=== PATIENT | female | born 1955 | race African-American/Black ===

== ENCOUNTER 2017-04-27 12:30 | Emergency (ER) | payer MEDICAID ==
[~2017-04-27] VITALS: Ht 172.7 cm; Wt 82.0 kg
[~2017-04-27 12:30] MED LIST: FURO-152 PO; GABA800T PO; LEVO50TA70 PO; LISI2.5T89; METF500T PO; POTA25TA PO; PRIL10 PO
[2017-04-27] MEDS ORDERED: SODIUM CHLORIDE 0.9% 10ML VIAL ONE (13:06)
[2017-04-27] MEDS ORDERED: IOHEXOL-300 100 ML BOTTLE ONE (13:06)
[2017-04-27] MEDS ORDERED: MORPHINE SULFATE 4 MG/ML CPJ (NOT FOR IM USE) IV STA (14:01)
[2017-04-27] MEDS ORDERED: ONDANSETRON HCL 4MG/2ML VIAL IV STA (14:01)
[2017-04-27 14:28] LABS: BASOPHILS % 0.8 % (0.0-2.0); EOSINOPHILS % 0.8 % (0.0-5.0); HEMATOCRIT. 40.2 % (36.0-48.0); LYMPHOCYTES % 38.8 % (20.0-50.0); MEAN CORPUSCULAR VOLUME 89.6 fL (81.0-99.0); MEAN PLATELET VOLUME 8.4 fl (7.4-10.4); MONOCYTES % 6.6 % (2.0-8.0); PLATELET 171 x1000/uL (130-400); RED BLOOD CELL COUNT 4.49 mill/uL (4.2-5.4); RED CELL DISTRIBUTION WIDTH 13.2 % (11.6-14.6)
[2017-04-27 14:34] LABS: PROTHROMBIN TIME 10.6 sec
[2017-04-27 14:40] LABS: CARBON DIOXIDE 28 mEq/L (21-32); CHLORIDE 106 mEq/L (98-107)
[2017-04-27 14:49] LABS: CLARITY URINE CLEAR (CLEAR); COLOR URINE YELLOW (YELLOW); GLUCOSE URINE NEGATIVE (NEGATIVE); KETONES URINE NEGATIVE (NEGATIVE); LEUKOCYTE ESTERASE URINE NEGATIVE (NEGATIVE); NITRITE URINE NEGATIVE (NEGATIVE); OCCULT BLOOD URINE NEGATIVE (NEGATIVE); PROTEIN URINE NEGATIVE (NEGATIVE); SPECIFIC GRAVITY URINE 1.022 (1.005-1.030)
[2017-04-27 16:45] VITALS: BP 132/82
== END 2017-04-27 17:29 | disposition home or self-care (01) ==
LOC: ER 14:15
DX: R10.33 Periumbilical pain (principal); E11.9 Type 2 diabetes mellitus without complications; I11.0 Hypertensive heart disease with heart failure; F17.210 Nicotine dependence, cigarettes, uncomplicated; J44.9 Chronic obstructive pulmonary disease, unspecified; N28.1 Cyst of kidney, acquired; Z90.49 Acquired absence of other specified parts of digestive tract; Z90.710 Acquired absence of both cervix and uterus; Z86.19 Personal history of other infectious and parasitic diseases
CPT/HCPCS: 36415; 74177; 80053; 81003; 83690; 85025; 85610; 96374; 96375; 99285; A4216; J2270; J2405; Q9967; Z7610

== ENCOUNTER 2017-07-10 11:30 | Emergency (ER) | payer MEDICAID ==
[~2017-07-10] VITALS: Ht 172.7 cm; Wt 83.0 kg
[2017-07-10] MEDS ORDERED: KETOROLAC 30MG/ML VIAL IV STA (12:45)
[2017-07-10] MEDS ORDERED: ASPIRIN 81MG TABLET PO STA (12:45)
[2017-07-10 13:23] LABS: BASOPHILS % 0.5 % (0.0-2.0); EOSINOPHILS % 1.6 % (0.0-5.0); HEMOGLOBIN. 11.6 g/dL (12.0-16.0); LYMPHOCYTES % 41.1 % (20.0-50.0); MEAN CORPUSCULAR HEMOGLOBIN 29.1 pg (28.0-32.0); MEAN CORPUSCULAR VOLUME 88.1 fL (81.0-99.0); MEAN PLATELET VOLUME 7.8 fl (7.4-10.4); MONOCYTES % 7.3 % (2.0-8.0); NEUTROPHILS % 49.5 % (40.0-76.0); PLATELET 157 x1000/uL (130-400); RED BLOOD CELL COUNT 3.97 mill/uL (4.2-5.4); RED CELL DISTRIBUTION WIDTH 13.3 % (11.6-14.6)
[2017-07-10 13:28] LABS: CHLORIDE 106 mEq/L (98-107); PARTIAL THROMBOPLASTIN TIME 26.1 sec (23.4-31.0); PROTHROMBIN TIME 10.6 sec (9.4-11.6)
[2017-07-10 13:36] LABS: CARBON DIOXIDE 28 mEq/L (21-32); ETHANOL BLOOD < 10 mg/dL; TROPONIN I < 0.02 ng/mL (0.00-0.04)
[2017-07-10 14:03] VITALS: BP 133/85
[2017-07-10 14:37] LABS: *AMPHETAMINES SCREEN URINE NEGATIVE (NEGATIVE); *BARBITURATES SCREEN URINE NEGATIVE (NEGATIVE); *BENZODIAZEPINES SCREEN URINE NEGATIVE (NEGATIVE); *COCAINE SCREEN URINE PRESUMTIVE POSITIVE (NEGATIVE); METHADONE URINE SCREEN NEGATIVE (NEGATIVE); OPIATES URINE SCREEN NEGATIVE (NEGATIVE); PHENCYCLIDINE URINE SCREEN NEGATIVE (NEGATIVE)
[2017-07-10 14:47] LABS: CANNABINOID URINE SCREEN NEGATIVE (NEGATIVE)
== END 2017-07-10 15:50 | disposition home or self-care (01) ==
LOC: ER 13:59
DX: M94.0 Chondrocostal junction syndrome [Tietze] (principal); F14.10 Cocaine abuse, uncomplicated; E11.9 Type 2 diabetes mellitus without complications; J44.9 Chronic obstructive pulmonary disease, unspecified; I11.0 Hypertensive heart disease with heart failure; I50.9 Heart failure, unspecified; R07.89 Other chest pain
CPT/HCPCS: 36415; 71010; 80053; 80305; 83690; 84484; 85025; 85610; 85730; 93005; 96374; 99285; G0482; J1885

== ENCOUNTER 2022-10-21 14:12 | Emergency (ER) | payer MEDICAID ==
[~2022-10-21] VITALS: Ht 172.7 cm; Wt 82.0 kg
[~2022-10-21 14:12] MED LIST changes: +LEVO50TA PO; -LEVO50TA70 PO; -POTA25TA PO; +POTA25TA13 PO
[2022-10-21 17:38] LABS: BASOPHILS % 0.3 % (0.0-2.0); EOSINOPHILS % 2.3 % (0.0-5.0); HEMATOCRIT. 33.5 % (36.0-48.0); HEMOGLOBIN. 10.8 g/dL (12.0-16.0); MEAN CORPUSCULAR HEMOGLOBIN 28.7 pg (28.0-32.0); MEAN CORPUSCULAR VOLUME 88.7 fL (81.0-99.0); MEAN PLATELET VOLUME 7.8 fl (7.4-10.4); MONOCYTES % 8.8 % (2.0-8.0); NEUTROPHILS % 48.6 % (40.0-76.0); PLATELET 214 x1000/uL (130-400); RED BLOOD CELL COUNT 3.78 mill/uL (4.2-5.4); RED CELL DISTRIBUTION WIDTH 15.6 % (11.6-14.6)
[2022-10-21] MEDS ORDERED: KETOROLAC 60MG/2ML VIAL IM ONE (17:45)
[2022-10-21 17:57] LABS: CHLORIDE 110 mEq/L (98-107)
[2022-10-21] MEDS ORDERED: HYDROCODONE/ACETAMINOPHEN 5/325MG TABLET PO ONE (21:00)
[2022-10-21 21:19] LABS: CLARITY URINE CLEAR (CLEAR); COLOR URINE YELLOW (YELLOW); KETONES URINE TRACE (NEGATIVE); LEUKOCYTE ESTERASE URINE TRACE (NEGATIVE); NITRITE URINE NEGATIVE (NEGATIVE); OCCULT BLOOD URINE NEGATIVE (NEGATIVE); PROTEIN URINE TRACE (NEGATIVE); SPECIFIC GRAVITY URINE 1.034 (1.005-1.030)
[2022-10-21] MEDS ORDERED: CIPHCO LEFT EAR (21:46)
[2022-10-21 21:54] VITALS: BP 129/78
== END 2022-10-21 21:56 | disposition home or self-care (01) ==
LOC: ER 14:12
DX: H60.92 Unspecified otitis externa, left ear (principal); R35.0 Frequency of micturition; R07.0 Pain in throat; I13.2 Hypertensive heart and chronic kidney disease with heart failure and with stage 5 chronic kidney disease, or end stage renal disease; I50.9 Heart failure, unspecified; E11.22 Type 2 diabetes mellitus with diabetic chronic kidney disease; N18.6 End stage renal disease; R94.31 Abnormal electrocardiogram [ECG] [EKG]; D64.9 Anemia, unspecified; J43.9 Emphysema, unspecified; Z59.00 Homelessness unspecified
CPT/HCPCS: 36415; 80053; 81003; 83880; 84484; 85025; 93005; 96372; 99284; J1885

== ENCOUNTER 2023-07-05 20:06 | Emergency (ER) | payer MEDICAID ==
[~2023-07-05] VITALS: Ht 162.6 cm; Wt 78.0 kg
[~2023-07-05 20:06] MED LIST changes: +CIPHCO LEFT EAR
[2023-07-05 20:11] VITALS: O2SAT 100
[2023-07-05] MEDS ORDERED: ALBUTEROL (0.5%) 2.5MG/0.5ML NEB HHN ONE (21:00)
[2023-07-05 21:34] LABS: BASOPHILS % 0.4 % (0.0-2.0); EOSINOPHILS % 0.9 % (0.0-5.0); HEMATOCRIT. 38.1 % (36.0-48.0); HEMOGLOBIN. 12.1 g/dL (12.0-16.0); MEAN CORPUSCULAR HEMOGLOBIN 28.7 pg (28.0-32.0); MEAN CORPUSCULAR HGB CONC 31.8 g/dL (31.0-37.0); MEAN CORPUSCULAR VOLUME 90.3 fL (81.0-99.0); MEAN PLATELET VOLUME 8.3 fl (7.4-10.4); MONOCYTES % 9.5 % (2.0-8.0); NEUTROPHILS % 63.2 % (40.0-76.0); PLATELET 185 x1000/uL (130-400); RED BLOOD CELL COUNT 4.22 mill/uL (4.2-5.4); RED CELL DISTRIBUTION WIDTH 15.4 % (11.6-14.6); WHITE BLOOD COUNT 5.7 x1000/uL (4.5-11.0)
[2023-07-05 21:41] LABS: CLARITY URINE CLOUDY (CLEAR); COLOR URINE DARK YELLOW (YELLOW); GLUCOSE URINE NEGATIVE (NEGATIVE); KETONES URINE 1+ (NEGATIVE); LEUKOCYTE ESTERASE URINE TRACE (NEGATIVE); NITRITE URINE NEGATIVE (NEGATIVE); OCCULT BLOOD URINE NEGATIVE (NEGATIVE); PH URINE 5.5 (4.5-8.0); PROTEIN URINE 1+ (NEGATIVE); SPECIFIC GRAVITY URINE 1.031 (1.005-1.030)
[2023-07-05 21:43] LABS: RBC URINE 0-2 /hpf (0-2); SQUAMOUS EPITHELIAL CELL URINE 2+ /lpf (RARE/1+); YEAST URINE NONE SEEN
[2023-07-05 21:43] LABS: CHLORIDE 104 mEq/L (98-107); INDEX HEMOLYSI 1 (1-3); INDEX ICTERIC 1 (1-4); INDEX LIPEMIC 1 (1-3); POTASSIUM 3.8 mEq/L (3.5-5.1); SODIUM 138 mEq/L (136-145)
[2023-07-05 21:52] LABS: *AMPHETAMINES SCREEN URINE PRESUMTIVE POSITIVE (NEGATIVE); *BARBITURATES SCREEN URINE NEGATIVE (NEGATIVE); *BENZODIAZEPINES SCREEN URINE NEGATIVE (NEGATIVE); *COCAINE SCREEN URINE PRESUMTIVE POSITIVE (NEGATIVE); CANNABINOID URINE SCREEN PRESUMTIVE POSITIVE (NEGATIVE); ECSTASY MDMA SCREEN URINE CONF.TEST INDICATED (NEGATIVE); METHADONE URINE SCREEN NEGATIVE (NEGATIVE); OPIATES URINE SCREEN PRESUMTIVE POSITIVE (NEGATIVE); PHENCYCLIDINE URINE SCREEN PRESUMTIVE POSITIVE (NEGATIVE)
[2023-07-05 21:53] LABS: ALANINE AMINOTRANSFERASE 26 IU/L (13-61); ALBUMIN 4.2 g/dL (3.4-5.0); ASPARTATE AMINOTRANSFERASE 31 IU/L (15-37); BILIRUBIN TOTAL 0.5 mg/dL (0.1-1.0); CALCIUM 9.7 mg/dL (8.5-10.1); CARBON DIOXIDE 28 mEq/L (21-32); CREATININE 0.8 mg/dL (0.6-1.3); ETHANOL BLOOD < 10 mg/dL (-10); GLUCOSE 128 mg/dL (70-105); PROTEIN TOTAL 8.1 g/dL (6.0-8.3); UREA NITROGEN BLOOD 14 mg/dL (7-21)
[2023-07-05 22:04] LABS: BACTERIA URINE 2+
[2023-07-06 04:45] VITALS: BP 159/85; PULSE 86; RESP 18; TEMP 98
== END 2023-07-06 04:56 | disposition home or self-care (01) ==
LOC: ER 20:06
DX: T40.711A Poisoning by cannabis, accidental (unintentional), initial encounter (principal); J44.9 Chronic obstructive pulmonary disease, unspecified; I11.0 Hypertensive heart disease with heart failure; I50.9 Heart failure, unspecified; E11.9 Type 2 diabetes mellitus without complications; F12.10 Cannabis abuse, uncomplicated; Z90.710 Acquired absence of both cervix and uterus; Z90.49 Acquired absence of other specified parts of digestive tract; Y92.89 Other specified places as the place of occurrence of the external cause; Z79.899 Other long term (current) drug therapy
CPT/HCPCS: 36415; 80053; 80305; 80320; 81003; 85025; 99291; G0480

== ENCOUNTER 2023-07-06 05:17 | Emergency (ER) | payer MEDICAID, OTHER ==
[~2023-07-06] VITALS: Ht 172.7 cm; Wt 83.2 kg
[2023-07-06 05:33] VITALS: O2SAT 98
[2023-07-06 08:01] LABS: BASOPHILS % 0.7 % (0.0-2.0); EOSINOPHILS % 0.9 % (0.0-5.0); HEMATOCRIT. 37.5 % (36.0-48.0); HEMOGLOBIN. 12.3 g/dL (12.0-16.0); LYMPHOCYTES % 27.5 % (20.0-50.0); MEAN CORPUSCULAR HEMOGLOBIN 28.7 pg (28.0-32.0); MEAN CORPUSCULAR HGB CONC 32.7 g/dL (31.0-37.0); MEAN CORPUSCULAR VOLUME 87.8 fL (81.0-99.0); MEAN PLATELET VOLUME 8.3 fl (7.4-10.4); MONOCYTES % 7.8 % (2.0-8.0); NEUTROPHILS % 63.1 % (40.0-76.0); PLATELET 203 x1000/uL (130-400); RED BLOOD CELL COUNT 4.27 mill/uL (4.2-5.4); RED CELL DISTRIBUTION WIDTH 15.3 % (11.6-14.6); WHITE BLOOD COUNT 5.7 x1000/uL (4.5-11.0)
[2023-07-06 08:09] LABS: CHLORIDE 106 mEq/L (98-107); INDEX HEMOLYSI 1 (1-3); INDEX ICTERIC 1 (1-4); INDEX LIPEMIC 1 (1-3); POTASSIUM 3.8 mEq/L (3.5-5.1); SODIUM 137 mEq/L (136-145)
[2023-07-06 08:17] LABS: ALANINE AMINOTRANSFERASE 22 IU/L (13-61); ALBUMIN 3.7 g/dL (3.4-5.0); ASPARTATE AMINOTRANSFERASE 35 IU/L (15-37); BILIRUBIN TOTAL 0.6 mg/dL (0.1-1.0); CALCIUM 9.1 mg/dL (8.5-10.1); CARBON DIOXIDE 26 mEq/L (21-32); CREATININE 0.7 mg/dL (0.6-1.3); ETHANOL BLOOD < 10 mg/dL (-10); GLUCOSE 123 mg/dL (70-105); PROTEIN TOTAL 7.5 g/dL (6.0-8.3); UREA NITROGEN BLOOD 14 mg/dL (7-21)
[2023-07-07 00:17] LABS: CLARITY URINE CLEAR (CLEAR); COLOR URINE YELLOW (YELLOW); GLUCOSE URINE NEGATIVE (NEGATIVE); KETONES URINE NEGATIVE (NEGATIVE); LEUKOCYTE ESTERASE URINE NEGATIVE (NEGATIVE); NITRITE URINE NEGATIVE (NEGATIVE); OCCULT BLOOD URINE NEGATIVE (NEGATIVE); PROTEIN URINE NEGATIVE (NEGATIVE); SPECIFIC GRAVITY URINE 1.017 (1.005-1.030)
[2023-07-07] MEDS ORDERED: LISINOPRIL 2.5MG TABLET PO SCH (05:45)
[2023-07-07] MEDS ORDERED: FUROSEMIDE 20MG TABLET PO SCH (05:45)
[2023-07-07] MEDS: LISINOPRIL 2.5MG TABLET PO SCH (09:00)
[2023-07-07] MEDS: METFORMIN HCL 500MG TABLET PO SCH ×2 (09:00→17:00)
[2023-07-07] MEDS: FUROSEMIDE 20MG TABLET PO SCH (09:00)
[2023-07-07 13:19] LABS: *AMPHETAMINES SCREEN URINE PRESUMTIVE POSITIVE (NEGATIVE); *BARBITURATES SCREEN URINE NEGATIVE (NEGATIVE); *BENZODIAZEPINES SCREEN URINE NEGATIVE (NEGATIVE); *COCAINE SCREEN URINE PRESUMTIVE POSITIVE (NEGATIVE); CANNABINOID URINE SCREEN NEGATIVE (NEGATIVE); ECSTASY MDMA SCREEN URINE NEGATIVE (NEGATIVE); METHADONE URINE SCREEN NEGATIVE (NEGATIVE); OPIATES URINE SCREEN NEGATIVE (NEGATIVE); PHENCYCLIDINE URINE SCREEN PRESUMTIVE POSITIVE (NEGATIVE)
[2023-07-08] MEDS: LISINOPRIL 2.5MG TABLET PO SCH (09:18)
[2023-07-08] MEDS: FUROSEMIDE 20MG TABLET PO SCH (09:18)
[2023-07-08] MEDS: METFORMIN HCL 500MG TABLET PO SCH ×2 (09:18→17:18)
[2023-07-08 17:14] VITALS: BP 132/71; PULSE 63; RESP 16; TEMP 98.2
== END 2023-07-08 17:35 ==
LOC: ER 05:22
DX: R45.851 Suicidal ideations (principal); F12.10 Cannabis abuse, uncomplicated; J45.909 Unspecified asthma, uncomplicated; I11.0 Hypertensive heart disease with heart failure; I50.9 Heart failure, unspecified; Z90.49 Acquired absence of other specified parts of digestive tract; Z20.822 Contact with and (suspected) exposure to COVID-19
CPT/HCPCS: 36415; 80053; 80307; 80320; 80329; 81003; 85025; 93005; 99285; G0480

== ENCOUNTER 2024-09-01 04:55 | Emergency (ER) | payer MEDICAID ==
[~2024-09-01] VITALS: Ht 170.2 cm; Wt 68.0 kg
[~2024-09-01 04:55] MED LIST changes: +ALBU18HF2 IH; +AZIT250T12 MT
[2024-09-01 04:58] VITALS: TEMP 98.5; O2SAT 98
[2024-09-01] MEDS: HYDROCODONE/ACETAMINOPHEN 10/325MG TABLET PO ONE (05:30)
[2024-09-01] MEDS ORDERED: TRAM50TA3 MT (06:57)
[2024-09-01] MEDS ORDERED: IBUP-2028 MT (06:57)
[2024-09-01 07:17] VITALS: BP 136/71; PULSE 58; RESP 16; O2SAT 99
== END 2024-09-01 07:19 | disposition home or self-care (01) ==
LOC: ER 04:55
DX: S09.90XA Unspecified injury of head, initial encounter (principal); S83.8X1A Sprain of other specified parts of right knee, initial encounter; E11.9 Type 2 diabetes mellitus without complications; I11.0 Hypertensive heart disease with heart failure; F17.200 Nicotine dependence, unspecified, uncomplicated; I50.9 Heart failure, unspecified; Z90.49 Acquired absence of other specified parts of digestive tract; Z88.5 Allergy status to narcotic agent; Z90.710 Acquired absence of both cervix and uterus; Z79.899 Other long term (current) drug therapy; W18.39XA Other fall on same level, initial encounter; Y93.89 Activity, other specified; Y92.89 Other specified places as the place of occurrence of the external cause; Y99.8 Other external cause status
CPT/HCPCS: 73562; 99284